=== PATIENT | female | born 1995 | race Two or more races ===

== ENCOUNTER 2022-09-27 18:13 | Emergency (ER) | payer OTHER ==
[~2022-09-27] VITALS: Ht 170.2 cm; Wt 80.7 kg
[2022-09-27] MEDS ORDERED: PRENA1 TRUE CO1 EACH PO (18:25)
[2022-09-27] MEDS ORDERED: FOLIC ACID20 MG PO (18:25)
[2022-09-27] MEDS ORDERED: NASAL MIST126 ML NS (18:26)
[2022-09-28] MEDS ORDERED: IBUPROFEN800 MG PO (20:58)
== END 2022-09-27 20:12 | disposition home or self-care (01) ==
LOC: ER 18:13
DX: O20.9 Hemorrhage in early pregnancy, unspecified (principal); Z3A.01 Less than 8 weeks gestation of pregnancy

== ENCOUNTER 2022-09-28 17:26 | Emergency (ER) | payer OTHER ==
[~2022-09-28] VITALS: Ht 170.2 cm; Wt 80.7 kg
[~2022-09-28 17:26] MED LIST: FOLIC ACID20 MG PO; NASAL MIST126 ML NS; PRENA1 TRUE CO1 EACH PO
[2022-09-28] MEDS ORDERED: IBUPROFEN800 MG PO (20:58)
== END 2022-09-28 21:09 | disposition home or self-care (01) ==
LOC: ER 17:26
DX: O03.9 Complete or unspecified spontaneous abortion without complication (principal)

== ENCOUNTER 2023-06-28 12:49 | Emergency (ER) | payer OTHER ==
[~2023-06-28] VITALS: Ht 170.2 cm; Wt 83.9 kg
[~2023-06-28 12:49] MED LIST changes: +IBUPROFEN800 MG PO
[2023-06-28 15:40] LABS: HEMATOCRIT 36.3 % (36.0-45.00); HEMOGLOBIN 11.9 g/dL (12.0-15.00); MEAN CELL VOLUME 85.6 fL (80.00-100.00); MEAN CORPUSCULAR HEMOGLOBIN 27.9 pg (27.00-32.0); MEAN CORPUSCULAR HGB CONC 32.6 g/dl (32.0-36.0); PLATELET COUNT 199 K/uL (150-450); RED BLOOD COUNT 4.25 M/uL (4.00-6.00); RED CELL DISTRIBUTION WIDTH 14.3 % (11.5-14.5)
[2023-06-28 16:05] LABS: PH,URINE 7.5 (5.0-8.0); URINE APPEARANCE Clear; URINE BILIRRUBIN Negative (NEGATIVE); URINE COLOR Yellow; URINE GLUCOSE Negative (NEGATIVE); URINE LEUKOCYTE Negative; URINE NITRATE Negative; URINE PROTEIN Negative (NEGATIVE); URINE UROBILINOGEN 0.2 E.U./dl
[2023-06-28 16:09] LABS: URINE BACTERIA 1361.9 uL (0.0-1933); URINE EPITHELIAL CELLS 27.6 uL (0.0-38.8); URINE RBC 24.2 uL (0.0-20.8); URINE WBC 15.3 uL (0.0-23.2)
[2023-06-28 16:15] LABS: CALCIUM 8.7 mg/dL (8.5-10.1); CREATININE SERUM 0.96 mg/dL (0.55-1.02); GFR 70.25; POTASSIUM 3.7 mEq/L (3.5-5.1)
[2023-06-28 16:18] LABS: URINE BLOOD Trace
[2023-06-28] MEDS ORDERED: ZOFRAN8 MG PO (17:55)
[2023-06-28] MEDS ORDERED: PEPCID20 MG PO (17:55)
== END 2023-06-28 18:27 | disposition home or self-care (01) ==
LOC: ER 12:50
PROVIDERS: Nurse Practitioner Family
DX: K52.89 Other specified noninfective gastroenteritis and colitis (principal); B34.9 Viral infection, unspecified; K29.70 Gastritis, unspecified, without bleeding; J45.909 Unspecified asthma, uncomplicated; Z20.822 Contact with and (suspected) exposure to COVID-19
CPT/HCPCS: 36415; 96365; 96366; 99284; J1885; J2405; J3490; J7042

== ENCOUNTER 2023-09-28 08:58 | Emergency (ER) | payer OTHER ==
[~2023-09-28] VITALS: Ht 170.2 cm; Wt 81.6 kg
[~2023-09-28 08:58] MED LIST changes: +PEPCID20 MG PO; +ZOFRAN8 MG PO
[2023-09-28] MEDS ORDERED: KETOROLAC TROMETHAMINE 60 MG VIAL IM ONE (09:30)
[2023-09-28 09:59] LABS: HEMOGLOBIN 12.2 g/dL (12.0-15.00); MEAN CELL VOLUME 86.5 fL (80.00-100.00); MEAN CORPUSCULAR HEMOGLOBIN 28.5 pg (27.00-32.0); MEAN CORPUSCULAR HGB CONC 32.9 g/dl (32.0-36.0); PH,URINE 7.5 (5.0-8.0); PLATELET COUNT 216 K/uL (150-450); RED BLOOD COUNT 4.28 M/uL (4.00-6.00); RED CELL DISTRIBUTION WIDTH 14.1 % (11.5-14.5); URINE APPEARANCE Clear; URINE BILIRRUBIN Small (NEGATIVE); URINE BLOOD Negative; URINE COLOR Orange; URINE GLUCOSE Negative (NEGATIVE); URINE LEUKOCYTE Moderate; URINE NITRATE Positive; URINE PROTEIN 30 (NEGATIVE)
[2023-09-28 10:02] LABS: URINE EPITHELIAL CELLS 25.8 uL (0.0-38.8); URINE RBC 51.1 uL (0.0-20.8); URINE WBC 20.2 uL (0.0-23.2)
== END 2023-09-28 11:31 | disposition home or self-care (01) ==
LOC: ER 08:59
PROVIDERS: Emergency Medicine
DX: N39.0 Urinary tract infection, site not specified (principal)

== ENCOUNTER 2024-03-05 08:47 | Emergency (ER) | payer OTHER ==
[~2024-03-05] VITALS: Ht 170.2 cm; Wt 81.6 kg
[2024-03-05] MEDS ORDERED: PEPCID AC20 MG PO (09:00)
[2024-03-05 09:50] LABS: HEMATOCRIT 36.8 % (36.0-45.00); HEMOGLOBIN 12.1 g/dL (12.0-15.00); MEAN CELL VOLUME 85.6 fL (80.00-100.00); MEAN CORPUSCULAR HEMOGLOBIN 28.2 pg (27.00-32.0); MEAN CORPUSCULAR HGB CONC 32.9 g/dl (32.0-36.0); PLATELET COUNT 187 K/uL (150-450); RED CELL DISTRIBUTION WIDTH 14.7 % (11.5-14.5)
== END 2024-03-05 12:16 | disposition home or self-care (01) ==
LOC: ER 08:48
PROVIDERS: General Practice
DX: B34.9 Viral infection, unspecified (principal); R53.81 Other malaise; Z20.822 Contact with and (suspected) exposure to COVID-19